=== PATIENT | female | born 1960 ===

== ENCOUNTER 2021-10-11 16:56 | Inpatient (IN) | payer MEDICAID, OTHER ==
[~2021-10-11] VITALS: Ht 154.9 cm; Wt 62.3 kg
[2021-10-11 19:13] LABS: HEMATOCRIT 39.5 % (31.2-41.9); MEAN CORPUSCULAR HEMOGLOBIN 26.7 uug (24.7-32.8); MEAN CORPUSCULAR VOLUME 80.5 fL (75.5-95.3); PLATELET COUNT (AUTO) 296 K/uL (179-408)
[2021-10-11] MEDS ORDERED: CLONIDINE HCL 0.1 MG TABLET PO ONE (19:15)
[2021-10-11] MEDS ORDERED: PROCHLORPERAZINE EDISYLATE 10 MG/2 ML VIAL IM ONE (19:15)
[2021-10-11] MEDS ORDERED: PROCHLORPERAZINE EDISYLATE 10 MG/2 ML VIAL ONE (19:16)
[2021-10-11] MEDS ORDERED: CLONIDINE HCL 0.1 MG TABLET ONE (19:16)
[2021-10-11 19:27] LABS: ETHANOL < 3 MG/DL (0-0)
[2021-10-11 19:30] LABS: ALANINE AMINOTRANSFERASE 22 U/L (14-59); ALKALINE PHOSPHATASE 142 U/L (50-136); ASPARTATE AMINOTRANSFERASE 18 U/L (15-37); BILIRUBIN,DIRECT 0.1 mg/dL (0.0-0.2); BILIRUBIN,TOTAL 0.4 mg/dL (0.2-1.0); CARBON DIOXIDE 23 mmol/L (21-32); CHLORIDE 101 mmol/L (98-107); CREATININE 0.6 mg/dL (0.6-1.3); GLUCOSE 110 mg/dL (74-106); POTASSIUM 3.3 mmol/L (3.5-5.1); TOTAL PROTEIN, SERUM 8.5 g/dL (6.4-8.2); UREA NITROGEN, BLOOD 10 mg/dL (7-18)
[2021-10-11] MEDS ORDERED: ASPIRIN 81 MG TAB.CHEW PO ONE (20:00)
[2021-10-11] MEDS ORDERED: CYANOCOBALAMIN 1000 MCG/ML VIAL IM ONE (20:00)
[2021-10-11] MEDS ORDERED: POTASSIUM BICARBONATE/CIT AC 25 MEQ TABLET.EFF PO ONE (20:00)
[2021-10-11] MEDS ORDERED: NITROGLYCERIN OINT 1 GM PACKET TP ONE ×2 (20:00→20:29)
[2021-10-11] MEDS ORDERED: CYANOCOBALAMIN 1000 MCG/ML VIAL ONE (20:29)
[2021-10-11] MEDS ORDERED: ASPIRIN 81 MG TAB.CHEW ONE (20:29)
[2021-10-11] MEDS ORDERED: POTASSIUM BICARBONATE/CIT AC 25 MEQ TABLET.EFF ONE (20:29)
--- NOTE | 2021-10-11 21:51 | NUR ---
Called [facility] for panel call.
[2021-10-12 02:02] LABS: *BILIRUBIN,URIN NEGATIVE (NEGATIVE); *COLOR,URINE YELLOW (YELLOW); *KETONES,URINE 2+ (NEGATIVE); *UROBILINOGEN,URINE 0.2 E.U./dl (NORMAL); LEUKOCYTE ESTERASE ,URINE NEGATIVE (NEGATIVE); NITRITE, URINE NEGATIVE (NEGATIVE); PH,URINE 8.5 (5.0-8.0); UGLUCOSE NEGATIVE (NEGATIVE)
[2021-10-12 02:10] LABS: *BLOOD, URINE TRACE (NEGATIVE); *CLARITY,URINE HAZY (CLEAR)
[2021-10-12 02:18] LABS: *AMPHETAMINE, URINE POSITIVE (NEGATIVE); *CANNABINOID, URINE NEGATIVE (NEGATIVE); *COCCAINE, URINE NEGATIVE (NEGATIVE); *OPIATE, URINE NEGATIVE (NEGATIVE); *PHENCYCLIDINE SCREEN,URINE NEGATIVE (NEGATIVE); BACTERIA,URINE FEW /HPF (NONE SEEN); SQUAMOUS EPITHELIAL CELL,UR MANY /HPF (NONE SEEN)
--- NOTE | 2021-10-12 02:27 | NUR ---
Report given to Isaura SHELDON.
[2021-10-12] MEDS ORDERED: IBUPROFEN 600 MG TABLET ONE (02:51)
[2021-10-12] MEDS ORDERED: IBUPROFEN 600 MG TABLET PO ONE (03:00)
--- NOTE | 2021-10-12 03:36 | NUR ---
pt [facility] to room [facility] belongings.
--- NOTE | 2021-10-12 03:37 | NUR ---
Received pt awake, alert and orientedx3. Pt in no acute distress. Iv intact. Pt restless. Pt refusing some of the questions in assessment . penitentiary assessment done. Admission process and care plan initiated. Pt belonging list noted. Contraband items put in contraband locker. Safety and comfort provided. Will continue to monitor.
[2021-10-12] MEDS ORDERED: hydrOXYzine HCL 25 MG TABLET PO PRN (04:00)
[2021-10-12] MEDS ORDERED: REMEDY ESSENTIAL ZINC PASTE 113 GM TP PRN (04:00)
[2021-10-12] MEDS ORDERED: ONDANSETRON 4 MG/2 ML VIAL IV PRN (04:00)
[2021-10-12] MEDS ORDERED: DIPHENOXYLATE HCL/ATROP SULF TABLET PO PRN (04:00)
[2021-10-12] MEDS ORDERED: ACETAMINOPHEN 325 MG TABLET PO PRN (04:00)
[2021-10-12 04:30] VITALS: BP 159/99
--- NOTE | 2021-10-12 05:30 | NUR ---
Notify Dr guncotton packer regarding troponin 82. Blood pressure of 159/99. Pt in opioid withdrawal also. Ember Robles ordered Subatex 4mg SL daily.
[2021-10-12] MEDS: CLONIDINE HCL 0.1 MG TABLET PO SCH ×3 (05:43→22:00)
[2021-10-12] MEDS ORDERED: BUPRENORPHINE HCL 2 MG TAB.SUBL SL ONE (06:00)
[2021-10-12] MEDS: PANTOPRAZOLE SODIUM 40 MG TABLET.DR PO SCH (06:03)
--- NOTE | 2021-10-12 06:28 | NUR ---
Pt in no acute respiratory distress. Pt can follow commands. Prescribed medication given and pt tolerated it well. Safety and comfort provided. Pt given Subotrex and Tylenol prn . Will endorse to incoming nurse for continuity of care.
--- NOTE | 2021-10-12 08:00 | NUR ---
AWAKE ALERT AND ORIENTED X3 DENIES CHEST PAIN. CONTINUE TELE MONITORING ORDERED. SR ON MONITOR
[2021-10-12] MEDS: GABAPENTIN 300 MG CAPSULE PO SCH ×3 (09:05→17:31)
[2021-10-12] MEDS: PROPRANOLOL HCL 20 MG TABLET PO SCH ×2 (09:06→20:34)
[2021-10-12] MEDS: ASPIRIN EC 81 MG TABLET.DR PO SCH (09:06)
[2021-10-12] MEDS: ENOXAPARIN SODIUM 40 MG/0.4 ML DISP.SYRIN SQ SCH (09:07)
[2021-10-12 11:07] VITALS: BP 151/93
[2021-10-12] MEDS ORDERED: IBUP-1953 PO (11:19)
[2021-10-12] MEDS ORDERED: HYDR12.55 PO (11:19)
--- NOTE | 2021-10-12 12:24 | NUR ---
SEEN BY HOSPITALIST PLAN DC TODAY IF CLEARED BY DAMAGE INSIDE ADJUSTER. DENIES PAIN OR SOB, SR ON MONITOR
--- NOTE | 2021-10-12 13:02 | NUR ---
Social Work consult requested for a patient on medsurg. Patient is a 61 year old female admitted to the hospital for amphetamine withdrawal. Upon psych social worker assessment, patient is alert and oriented X4. Patient presents with depressed mood and congruent affect. Patient presents with poor judgement and insight. Patient states that she lives in a van that is parked on the intersection between [facility] and [facility]. SW offered the patient homeless resources and the patient was accepting. SW gave her the resources and put a copy in her chart. Homeless waiver was signed and given to the patient and a copy was placed in the chart. Patient will be offered a TAP card if needed. SW explored patients support system. Patient states that she does not have a primary contact center associate or any support system. Patient states that she lives alone. SW assessed the patients financial status. Patient states that she receives social security. SW assessed psychiatric diagnosis. Patient states that she has a history of depression. Patient denied visual or auditory hallucinations or delusions. SW assessed suicidal or homicidal ideation. Patient denies suicidal or homicidal ideation. Patient states that she has a history of substance abuse and states that she smokes fentanyl every day. SW offered the patient substance use resources and patient was accepting. SW gave her the resources and put a copy in her chart. SW assessed the patients discharge plan. Patient states that she will return to her van after discharge.
--- NOTE | 2021-10-12 13:20 | NUR ---
brought to bathroom with 2 person assist- pt was limping and very unsteady, states "sometimes collapses, i need hip surgery, circulation is not good", assisted back to bed after
[2021-10-12 15:50] VITALS: BP 98/65
[2021-10-12 20:00] VITALS: BP 96/58
[2021-10-12] MEDS ORDERED: ATORVASTATIN 40 MG TABLET PO SCH (21:00)
[2021-10-12] MEDS ORDERED: QUETIAPINE FUMARATE 100 MG TABLET PO SCH (21:00)
[2021-10-13] VITALS: BP 118/79
[2021-10-13 04:12] VITALS: BP 132/76
[2021-10-13] MEDS: CLONIDINE HCL 0.1 MG TABLET PO SCH ×2 (05:47→14:30)
[2021-10-13] MEDS: PANTOPRAZOLE SODIUM 40 MG TABLET.DR PO SCH (05:47)
--- NOTE | 2021-10-13 06:10 | NUR ---
Shift End Report: Slept well. No complaint presented all night. Anticipated needs. Very cooperative and compliant to plan of care. SR on the monitor. Continue care as planned.
[2021-10-13 06:34] LABS: HEMATOCRIT 38.7 % (31.2-41.9); MEAN CORPUSCULAR HEMOGLOBIN 26.6 uug (24.7-32.8); MEAN CORPUSCULAR VOLUME 79.3 fL (75.5-95.3); PLATELET COUNT (AUTO) 293 K/uL (179-408)
[2021-10-13 06:49] LABS: BILIRUBIN,TOTAL 0.5 mg/dL (0.2-1.0); CREATININE 0.9 mg/dL (0.6-1.3); MAGNESIUM 2.2 mg/dL (1.8-2.4); PHOSPHOROUS 3.2 mg/dL (2.5-4.9); POTASSIUM 3.9 mmol/L (3.5-5.1)
[2021-10-13 06:58] LABS: THYROID STIMULATING HORMONE 2.002 mIU/mL (0.358-3.740)
[2021-10-13] MEDS: GABAPENTIN 300 MG CAPSULE PO SCH ×3 (08:38→16:40)
[2021-10-13] MEDS: ASPIRIN EC 81 MG TABLET.DR PO SCH (08:38)
[2021-10-13] MEDS: PROPRANOLOL HCL 20 MG TABLET PO SCH (08:39)
[2021-10-13] MEDS: ENOXAPARIN SODIUM 40 MG/0.4 ML DISP.SYRIN SQ SCH (08:40)
[2021-10-13] MEDS ORDERED: BUPRENORPHINE HCL 2 MG TAB.SUBL SL SCH (09:00)
--- NOTE | 2021-10-13 11:30 | NUR ---
INSTRUCTED WILL BE DISCHARGED TODAY. REFUSING [facility]. STATES SHE ONLY NEEDS A W/C WHICH THE AMBULANCE LEFT AT THE BUS STOP. PREPARED FOR DISCHARGE.
[2021-10-13 12:00] VITALS: BP 111/70
--- NOTE | 2021-10-13 14:00 | NUR ---
PATIENT DC'D HER SALINE LOCK. ANGIOCATH FOUND INTACT AT BEDSIDE. DC'D TELEMETRY.
--- NOTE | 2021-10-13 15:00 | NUR ---
MASTERCARD MISSING. NOT IN CONTRABAND CLOSET. MEDICATIONS RETURNED TO PATIENT ALONG WITH CONTRABAND BAG. STATES CANNOT LEAVE WITHOUT MASTERCARD.
[2021-10-13 16:00] VITALS: BP 122/79
--- NOTE | 2021-10-13 16:30 | NUR ---
STEPHANY CALLED. PATIENT INFORMED THAT NURSE STATED THAT SHE HAD NO MASTERCARD. PATIENT INFORMED. IT WAS A PREPAID CARD. STATES THAT SHE WILL CANCEL THE CARD
--- NOTE | 2021-10-13 17:00 | NUR ---
PATIENT STATES THAT SHE FOUND THE CARD. SHE SHOWED THE NURSE WITH APOLOGY. PREPARED FOR DISCHARGE.
--- NOTE | 2021-10-13 17:20 | NUR ---
DISCHARGED VIA W/C. TAP CARD GIVEN. HOSPITAL PROVIDED W/C TO PATIENT. DENIES PAIN OR DISCOMFORT.
== END 2021-10-13 17:20 | disposition home or self-care (01) | DRG 773 ==
LOC: ER 16:56 → TELE3 10-12 03:02
DX: F11.23 Opioid dependence with withdrawal (principal); I21.A1 Myocardial infarction type 2; E87.6 Hypokalemia; R11.2 Nausea with vomiting, unspecified; F15.90 Other stimulant use, unspecified, uncomplicated; G89.4 Chronic pain syndrome; I10 Essential (primary) hypertension; Z20.822 Contact with and (suspected) exposure to COVID-19; Z59.00 Homelessness unspecified; F17.210 Nicotine dependence, cigarettes, uncomplicated
CPT/HCPCS: 36415; 71045; 83735; 84100; 84443; 84484; 85025; 87086; 93005; 93307; 97161; A4663; G0378; G0480; J0780; J1650; J3420